=== PATIENT | male | born 1985 | race Caucasian/White ===

== ENCOUNTER 2022-02-25 08:27 | Outpatient (CLI) | payer OTHER, SELFPAY | END 2022-02-25 08:28 | disposition home or self-care (01) | LOC: LKVREF 02-28 13:33 | PROVIDERS: PCP Physician Assistant Medical; Visit Provider Physician Assistant Medical | DX: I10 Essential (primary) hypertension (principal); M10.9 Gout, unspecified; R79.89 Other specified abnormal findings of blood chemistry; R45.89 Other symptoms and signs involving emotional state | CPT/HCPCS: 80053; 80061; 84550 ==

== ENCOUNTER 2022-02-26 10:23 | Outpatient (CLI) | payer OTHER, SELFPAY ==
[2022-02-26 17:16] LABS: HIV 1/2/P24 Combo Screen* Negative (Negative)
[2022-02-27 23:25] LABS: Hepatitis C Virus Antibody* Negative (Negative)
== END 2022-02-26 10:24 | disposition home or self-care (01) ==
LOC: LKVREF 10:24
PROVIDERS: PCP Physician Assistant Medical; Visit Provider Physician Assistant Medical
DX: Z79.899 Other long term (current) drug therapy (principal); R79.89 Other specified abnormal findings of blood chemistry; M10.9 Gout, unspecified; I10 Essential (primary) hypertension; R45.89 Other symptoms and signs involving emotional state
CPT/HCPCS: 86703; 86803

== ENCOUNTER 2022-09-18 08:10 | Outpatient (CLI) | payer OTHER, SELFPAY | END 2022-09-18 08:11 | disposition home or self-care (01) | PROVIDERS: PCP Physician Assistant Medical; Visit Provider Physician Assistant Medical | DX: R63.4 Abnormal weight loss (principal); R79.89 Other specified abnormal findings of blood chemistry; R45.89 Other symptoms and signs involving emotional state; E78.1 Pure hyperglyceridemia; M10.9 Gout, unspecified; I10 Essential (primary) hypertension | CPT/HCPCS: 80053; 80061; 84550 ==

== ENCOUNTER 2022-09-30 07:05 | Outpatient (CLI) | payer OTHER, SELFPAY ==
--- NOTE | 2022-09-30 07:15 | CRLHL7_ITS ---
For Patients: As a result of the Century Cures Act, medical imaging exams and procedure reports are released immediately into your electronic medical record. You may view this report before your referring provider. If you have questions, please contact your health care provider. INDICATION: Elevated liver enzymes COMPARISON: none TECHNIQUE: Real time quezada scale imaging and color Doppler analysis was performed of the right upper quadrant. FINDINGS: The patient`s liver is of normal size and has diffusely increased echogenicity. There is a normal appearance of the hepatic IVC and proximal abdominal aorta. There is no evidence of ascites. The gallbladder is of normal size and there is the suspicion of layering sludge within the gallbladder. The gallbladder wall measures 3 mm in thickness. The common bile duct is of normal size and measures 4 mm in diameter at the level of the yumiko hepatis. The pancreas appears normal. There is no evidence of a stone or hydronephrosis within the right kidney. The right kidney measures 10.0 cm in length. IMPRESSION: Severe diffuse hepatic steatosis. Suspicion of sludge within the gallbladder without biliary obstruction. Dictated by Guanakito Cartwright MD @ 09/30/2022 9:17:13 AM (Electronically Signed)
== END 2022-09-30 07:06 | disposition home or self-care (01) ==
LOC: US 07:07
PROVIDERS: PCP Physician Assistant Medical; Visit Provider Physician Assistant Medical
DX: R79.89 Other specified abnormal findings of blood chemistry (principal); K76.0 Fatty (change of) liver, not elsewhere classified
CPT/HCPCS: 76705

== ENCOUNTER 2023-12-10 08:54 | Outpatient (CLI) | payer OTHER, SELFPAY ==
--- OUTSIDE RECORDS SUMMARY | 2023-12-29 15:30 | XMS_ITS ---
Author Organization [facility] Address [address] [place] [address] Care Team Providers Care Respiratory Scientist Name Role Phone Unavailable Unavailable Unavailable Surgery Details Not on file Complications Check Surgery Details section. Procedure Estimated Blood Loss Check Surgery Details section. Procedure Findings Check Surgery Details section. Procedure Specimens Taken Check Surgery Details section.
--- OUTSIDE RECORDS SUMMARY | 2023-12-29 15:30 | XMS_ITS | Referral Summary ---
Author Organization [facility] Address [address] [place] [address] Care Team Providers Care Network Strategist Name Role Phone Elsewhere, Pcp Primary Care Provider Unavailabl e Source Comments Patient records contain information from all sites at [facility]. For routine questions regarding patient records, call [phone] during business hours, M-F 8:00 AM - 5:00 PM Central Time. Record requests for emergency care only can be directed to [phone] at any time.[facility] Encounters Date Type Department Care Team Description 10/27/2023 1:25 PM CDT - 10/27/2023 3:54 PM CDT Emergency [facility] [address] [place] [phone] Marlon Taylor D.O. Laceration Hand Without Foreign Body Initial Left (Primary Dx) Discharge Disposition: Home or Self Care from Last 3 Months Allergies No known active allergies Medications Medication Sig Dispensed Refills Start Date End Date Status indomethacin (for_INDOCIN) 25 mg capsule Take 1 capsule by mouth 3 (three) times a day as needed. 05/21/2016 Active buPROPion (WELLBUTRIN SR) 150 mg 12 hr tablet TAKE 1 TABLET BY MOUTH IN THE MORNING AND 1 IN THE EVENING NEEDED 04/06/2020 Active allopurinoL (ZYLOPRIM) 100 mg tablet Take 100 mg by mouth daily. 04/13/2020 Active naproxen (NAPROSYN) 500 mg tabletIndications:Pu ncture Wound With Foreign Body Of Left Index Finger Without Damage To Nail Initial Take 1 tablet twice daily 15 min before meal for the next 5 days and then take twice daily as needed for pain. 24 tablet 1 06/08/2020 Active lisinopriL (PRINIVIL,ZESTRIL) 10 mg tablet Take 10 mg by mouth daily. for blood pressure 10/16/2023 Active Active Problems Problem Noted Date Diagnosed Date Gout 05/26/2023 Fatty Liver 05/26/2023 Effusion Knee Right 05/26/2023 Pure Hyperglyceridemia (Hypertriglyceridemia) Other Specified Abnormal Findings Of Blood Chemi stry 05/26/2023 Hypertension 05/21/2016 Overview: Hypertension (HTN) NOS Immunizations Name Administration Dates Next Due HepB, Unspecified 11/20/1998,07/17/1998,05/29/19 98 Tdap 06/08/2020 Social History Tobacco Use Types Packs/Day Years Used Date Smoking Tobacco: Former Smokeless Tobacco: Never Nutrition Answer Date Recorded Nutrition: EVOO Fat Source Unknown 09/10 Nutrition: Servings of Fruits/Vegetables per Day Not on file 09/10/2020 Dental Answer Date Recorded Dental: Regular Dentist Unknown 09/11/19 21 Sex and Gender Information Value Date Recorded Sex Assigned at Not on file Gender Identity Not on file Sexual Orientation Not on file Last Filed Vital Signs Vital Sign Reading Time Taken Comments Blood Pressure 135/88 10/27/2023 3:45 PM CDT Pulse 72 10/27/2023 3:45 PM CDT Temperature 36.7 ??C (98.1 ??F) 10/27/2023 2:22 PM CD T Respiratory Rate 18 10/27/2023 3:45 PM CDT Oxygen Saturation 100% 10/27/2023 3:45 PM CDT Inhaled Oxygen Concentration - - Weight 115 kg (253 lb) 10/27/2023 1:28 PM CDT Height 186 cm (6' 1.23) 08/05/2017 10:08 AM HALF BACKER Body Mass Index 33.17 08/05/2017 10:08 AM HALF BACKER Plan of Treatment Not on file Procedures Procedure Name Priority Date/Time Associated Diagnosis Comments LACERATION REPAIR Routine 10/27/2023 3:5 4 PM CDT BASIC METABOLIC PANEL, S/P Routine 05/21/2016 1:55 PM HALF BACKER from Last 3 Months or Most Recently Relevant to Health Maintenance Results * Laceration Repair (10/27/2023 3:54 PM CDT) Narrative Marlon Taylor D.O. - 10/27/2023 3:54 PM CDT Marlon Taylor D.O. ? 10/27/2023 ??5:16 PM Laceration Repair Performed by: Marlon Taylor D.O. Authorized by: Marlon Taylor D.O. ?? PROCEDURE DETAILS Repair type: ??Simple Hemostasis achieved with: ??Direct pressure Contaminated: no ?? Wound exploration: wound explored through full range of motion and entire depth of wound probed and visualized ?? Wound extent: no foreign body, no nerve damage, no tendon damage and no underlying fracture ?? Repair method: ??Sutures Suture size: ??5-0 Suture material: ??Nylon Suture technique: ??Simple interrupted Number of sutures: ??6 Approximation: ??Close SEDATION / ANESTHESIA Anesthesia method: local infiltration Local infiltrate type: lidocaine, with epinephrine PRE PROCEDURE DETAILS Indication: laceration ?? Location: ??Hand Hand location: ??Left palmar surface Length (cm): ??3.5 Circulation distal to injury: capillary refill < 2 sec ?? Movement distal to injury: normal ?? Sensation distal to injury: normal ?? Area cleansed with: ??Chlorhexidine Amount of cleaning: ??Extensive Irrigation solution: ??Tap water Foreign body imaging: ??None Appropriate hand hygiene, gown, cap, mask, protective eyewear, sterile gloves, skin preparation, sterile drape, and strict aseptic technique were utilized as applicable for the procedure.: Yes ?? POST PROCEDURE DETAILS Procedure completed successfully: yes ?? Tetanus status up to date: ??Up to date Dressing Applied: yes ?? Circulation distal to injury: capillary refill < 2 sec ?? Movement distal to injury: normal ?? Sensation distal to injury: normal ?? Complications: no immediate complications ?? Marlon Taylor D.O. PROCEDURE/MINOR SMITHA GICAL ORDERABLES * (ABNORMAL) BMP (Basic Metabolic Panel) (05/21/2016 1:55 PM HALF BACKER) Sodium, S 141 135 - 145 MMOLL POWERCHART Potassium, S 4.2 3.5 - 5.1 MMOLL POWERCHART Chloride, S 96(L) 98 - 107 MMOLL POWERCHART CO2 Total 29 22 - 29 MMOLL POWERCHART BUN (Blood Urea Nitrogen), S 12 6 - 24 MGDL POWERCHART Creatinine 1.0 0.8 - 1.3 MGDL POWERCHART Calcium, Total, S 10.3 8.6 - 10.3 MGDL POWERCHART Anion Gap 16(H) 7 - 15 MMOLL POWERCHART HXeGFR (MDRD) >60.0 >=60.0 MLMINSA POWERCHART eGFR Black/ >60.0 >=60.0 MLMINSA POWERCHART Glucose 125 70 - 140 MGDL POWERCHART Blood 05/21/2016 1:55 PM HALF BACKER Austin Watson D.O. LAB BLOOD ADD-ON POWERCHART from Last 3 Months or Most Recently Relevant to Health Maintenance Care Teams Network Strategist Relationship Specialty Start Date End Date Elsewhere, Pcp PCP - General Family Medicine 08/24/20
--- OUTSIDE RECORDS SUMMARY | 2023-12-29 15:30 | XMS_ITS | Clinical Summary ---
Author Organization [facility] Address [address] [place] [address] Care Team Providers Care Police Liaison Officer Name Role Phone Elsewhere, Pcp Primary Care Provider Unavailabl e Source Comments Patient records contain information from all sites at [facility]. For routine questions regarding patient records, call [phone] during business hours, M-F 8:00 AM - 5:00 PM Central Time. Record requests for emergency care only can be directed to [phone] at any time.[facility] Allergies No known active allergies Medications Medication [...] 05/26/2023 Hypertension 05/21/2016 Overview: Hypertension (HTN) NOS Encounters Date Type Department Care Team Description 10/27/2023 1:25 PM CDT - 10/27/2023 3:54 PM CDT Emergency [facility] [address] [place] [phone] Marlon Taylor D.O. Laceration Hand Without Foreign Body Initial Left (Primary Dx) Discharge Disposition: Home or Self Care from Last 3 Months Immunizations Name Administration Dates Next Due HepB, [...] 186 cm (6' 1.23) 08/05/2017 10:08 AM MINING ANALYST Body Mass Index 33.17 08/05/2017 10:08 AM MINING ANALYST Plan of Treatment Health Maintenance Due Date Last Done Comments HIV Screening 1986 Hepatitis C Screening 1985 Lipid (Cholesterol) Screening 1986 Creatinine Level (Kidney Function Test) 05/21/2017 05/21/2016 Potassium Level 05/21/2017 05/21/2016 Sodium Level 05/21/2017 05/21/2016 COVID-19 Vaccine (1 - 2022-2 4 season) 2023 Influenza Vaccine (#1) 2023 Depression Screening (Annual PHQ-2) 07/13/2023 Office Visit for Blood Pressure Check / Re-check 05/26/2024 05/26/2023 DTaP,Tdap,and Td Vaccines (2 - Td or Tdap) 06/08/2030 06/08/2020 Hepatitis B Vaccines Completed 11/20/1998, 07/17/1998, 05/29/1998 HPV Vaccines Aged Out No longer eligi ble based on patient's age to complete this topic Pneumococcal vaccine (0-64 years) Aged Out No longer eligible b ased on patient's age to complete this topic Procedures Procedure Name Priority Date/Time Associated Diagnosis Comments LACERATION REPAIR Routine 10/27/2023 3:5 4 PM CDT BASIC METABOLIC PANEL, S/P Routine 05/21/2016 1:55 PM MINING ANALYST from Last 3 Months or Most Recently [...] BMP (Basic Metabolic Panel) (05/21/2016 1:55 PM MINING ANALYST) Sodium, S 141 135 - 145 MMOLL [...] 140 MGDL POWERCHART Blood 05/21/2016 1:55 PM MINING ANALYST Austin Watson D.O. LAB BLOOD ADD-ON POWERCHART from Last 3 Months or Most Recently Relevant to Health Maintenance Care Teams Police Liaison Officer Relationship Specialty Start Date End Date Elsewhere, Pcp PCP - General Family Medicine 08/24/20
--- OUTSIDE RECORDS SUMMARY | 2023-12-29 15:30 | XMS_ITS | Encounter Summary ---
Author Organization [facility] Address [address] [place] [address] Care Team Providers Care Surveillance Camera Technician Name Role Phone Elsewhere, Pcp Primary Care Provider Unavailabl e Reason for Visit * Reason Comments Extremity Laceration Pt presents to ED w ith L anterior hand laceration from a piece of metal strapping. CWMS intact. Wound care completed in triage. Tdap in 2020. Encounter Details Date Type Department Care Team ([facility] st Contact Info) Description 10/27/2023 1:25 PM CDT - 10/27/2023 3:54 PM CDT Emergency [facility] [address] [place] [phone] Marlon Taylor, NgoziO. [address] [place] [address] Laceration Hand Without Foreign Body Initial Left (Primary Dx) Discharge Disposition: Home or Self Care Social History Tobacco Use Types Packs/Day Years [...] on file Sexual Orientation Not on file documented as of this encounter Last Filed Vital Signs Vital Sign Reading Time Taken Comments Blood Pressure 135/88 10/27/2023 3:45 PM CDT Pulse 72 10/27/2023 3:45 PM CDT Temperature 36.7 ??C (98.1 ??F) 10/27/2023 2:22 PM CD T Respiratory Rate 18 10/27/2023 3:45 PM CDT Oxygen Saturation 100% 10/27/2023 3:45 PM CDT Inhaled Oxygen Concentration - - Weight 115 kg (253 lb) 10/27/2023 1:28 PM CDT Height - - Body Mass Index 33.17 08/05/2017 10:08 AM SYRUP MIXER HELPER documented in this encounter Discharge Instructions * Discharge Instructions* Marlon Taylor D.O. - 10/27/2023 3:52 PM CDT You were seen in the emergency department for evaluation of your symptoms. Your sutures and wound should remain clean and dry. Do limit lifting and excessive movement. Lifting should not be over 10 lb as it will likely increase risk for wound dehiscence/sutures pulling out/breaking. Do not submergethis wound but indirect soap and water, such as a shower is appropriate and okay. Please change thedressing daily and this can occur after showering. We do recommend putting a non adherent dressing over the wound so that is easier to remove the following day. Sutures should be considered for removal in 7 to 10 days. * Attachments The following attachments cannot be sent through Care Everywhere. * Laceration Care Adult (Vietnamese) documented in this encounter Medications at Time of Discharge Medication Sig Dispensed Refills Start Date End Date lisinopriL (PRINIVIL,ZESTRIL) 10 mg tablet Take 10 mg by mouth daily. for blood pressure 10/16/2023 allopurinoL (ZYLOPRIM) 100 mg tablet Take 100 mg by mouth daily. 04/13/2020 buPROPion (WELLBUTRIN SR) 150 mg 12 hr tablet TAKE 1 TABLET BY MOUTH IN THE MORNING AND 1 IN THE EVENING NEEDED 04/06/2020 indomethacin (for_INDOCIN) 25 mg capsule Take 1 capsule by mouth 3 (three) times a day as needed. 05/21/2016 naproxen (NAPROSYN) 500 mg tabletIndications:Punctu re Wound With Foreign Body Of Left Index Finger Without Damage To Nail Initial Take 1 tablet twice daily 15 min before meal for the next 5 days and then take twice daily as needed for pain. 24 tablet 1 06/08/2020 documented as of this encounter Procedure Notes * Marlon Taylor D.O. - 10/27/2023 3:54 PM CDTAssociated Order(s): Laceration Repair Procedure Laceration Repair Performed by: Marlon Taylor D.O. Authorized by: Marlon Taylor D.O. PROCEDURE DETAILS Repair type: Simple Hemostasis achieved with: Direct pressure Contaminated: no Wound exploration: wound explored through full range of motion and entire depth of wound probed andvisualized Wound extent: no foreign body, no nerve damage, no tendon damage and no underlying fracture Repair method: Sutures Suture size: 5-0 Suture material: Nylon Suture technique: Simple interrupted Number of sutures: 6 Approximation: Close SEDATION / ANESTHESIA Anesthesia method: local infiltration Local infiltrate type: lidocaine, with epinephrine PRE PROCEDURE DETAILS Indication: laceration Location: Hand Hand location: Left palmar surface Length (cm): 3.5 Circulation distal to injury: capillary refill < 2 sec Movement distal to injury: normal Sensation distal to injury: normal Area cleansed with: Chlorhexidine Amount of cleaning: Extensive Irrigation solution: Tap water Foreign body imaging: None Appropriate hand hygiene, gown, cap, mask, protective eyewear, sterile gloves, skin preparation, sterile drape, and strict aseptic technique were utilized as applicable for the procedure.: Yes POST PROCEDURE DETAILS Procedure completed successfully: yes Tetanus status up to date: Up to date Dressing Applied: yes Circulation distal to injury: capillary refill < 2 sec Movement distal to injury: normal Sensation distal to injury: normal Complications: no immediate complications Marlon Taylor D.O. 10/27/23 1716 documented in this encounter ED Notes * Marlon Taylor D.O. - 10/27/2023 3:54 PM CDT SUBJECTIVE CHIEF COMPLAINT / REASON FOR VISIT: Extremity Laceration (Pt presents to ED with L anterior hand laceration from a piece of metal strapping. CWMS intact. Wound care completed in triage. Tdap in 2019. ) HISTORY OF PRESENT ILLNESS Wes Wooten is a 38 y.o. male who presents to the Emergency Department with a chief complaint of laceration to left hand prior to arrival. No preceding symptoms. Patient notes he cut it on a piece of metal banding while at home. Patient noting tetanus up-to-date. Patient notes no significantpast medical history minus hypertension. No history of diabetes or chronic steroid use. History provided by: Patient REVIEW OF SYSTEMS Constitutional: Negative for fever. Skin: Positive for wound. Allergic/Immunologic: Negative for immunocompromised state. ALLERGIES / CONTRAINDICATIONS Reviewed in medical record. CURRENT MEDICATIONS Reviewed in medical record. MEDICAL HISTORY History reviewed. No pertinent past medical history. Patient Active Problem List Diagnosis Date Noted Gout 05/26/2023 Fatty Liver 05/26/2023 Effusion Knee Right 05/26/2023 Pure Hyperglyceridemia (Hypertriglyceridemia) 05/26/2023 Other Specified Abnormal Findings Of Blood Chemistry 05/26/2023 Hypertension 05/21/2016 SURGICAL HISTORY History reviewed. No pertinent surgical history. FAMILY HISTORY Reviewed in chart. SOCIAL HISTORY Social History Tobacco Use Smoking status: Former Smokeless tobacco: Never Substance Use Topics Alcohol use: Not on file Social History Substance and Sexual Activity Drug Use Not on file OBJECTIVE INITIAL VITAL SIGNS: Initial Vitals [10/27/23 1328] Temperature 36.6 ??C Pulse Rate 80 Heart Rate Resp Rate 20 Blood Pressure 130/87 SpO2 100 % Pain Score 2 PHYSICAL EXAMINATION Constitutional: Nursing note and vitals reviewed. No distress. HENT: Head: Normocephalic and atraumatic. Mouth/Throat: Mucous membranes are moist. Cardiovascular: Capillary refill: takes less than 3 seconds Pulmonary/Chest: Effort normal. No respiratory distress. Musculoskeletal: Comments: 3-1/2 linear laceration involving subcutaneous fat. No tendon structures or foreign body appreciated. Flexor digitorum profundus, flexor digitorum superficialis, and extensor mechanism intact. Neurological: Alert and oriented to person, place, and time. Sensation intact to light touch Skin: Skin is intact and normal color. He is not diaphoretic. Psychiatric: He has a normal mood and affect. Behavior is normal. ED COURSE: Final Diagnoses: as of 10/27/23 1715 Laceration Hand Without Foreign Body Initial Left INTERVENTIONS: Medications lidocaine-EPINEPHrine 1 %-1:100,000 injection 10 mL (XYLOCAINE W/EPI) (10 mL infiltration Given 10/27/23 1430) DIAGNOSTICS LABS: Labs Reviewed - No data to display ECG: RADIOLOGY: No orders to display PROCEDURES: Laceration repair ASSESSMENT / PLAN IMPRESSION AND PLAN The patient is a pleasant 38-year-old male who is right-hand dominant without history of diabetes or smoking who presents emergency department with a chief complaint of laceration to his hand. Cut bysheet metal. Sheet metal/banding material intact and no concerns for foreign body. CMS intact distally. Tetanus up-to-date. Did discuss management with patient. Given subcutaneous fat, while approximated without tension, given over palmar aspect of hand, would elect to close. Wound management discussed. No indication for antibiotics. Copious irrigation here. Please see procedure note. I reviewed previous medical records including documentation from previous visits. DIAGNOSIS: Final diagnoses: [S61.412A] Laceration Hand Without Foreign Body Initial Left ED DISCHARGE MEDS: ED Prescriptions None DISPOSITION: Home or Self Care FOLLOW UP: Primary care Marlon Taylor D.O. Emergency Medicine Marlon Taylor D.O. 10/27/23 8262 documented in this encounter Plan of Treatment Not on file documented as of this encounter Procedures Procedure Name Priority Date/Time Associated Diagnosis Comments LACERATION REPAIR Routine 10/27/2023 3:5 4 PM CDT documented in this encounter Results * Laceration Repair (10/27/2023 3:54 PM [...] Marlon Taylor D.O. PROCEDURE/MINOR SMITHA GICAL ORDERABLES documented in this encounter Visit Diagnoses Diagnosis Laceration Hand Without Foreign Body Initial Left- Primary documented in this encounter Administered Medications Inactive Administered Medications - up to 3 most recent administrations Medication Order MAR Action Action Date Dose Rate Site lidocaine-EPINEPHrine 1 %-1:100,000 injection 10 mL (XYLOCAINE W/EPI) 10 mL, infiltration, Once, On Thu10/27/23 at 1426, For 1 dose Given 10/27/2023 2:30 PM CDT 10 mL documented in this encounter Active and Recently Administered Medications Times are shown in CDT. Scheduled Medication Order 10/25/2023 10/26/2023 10/27/2023 lidocaine-EPINEPHrine 1 %-1:100,000 injection 10 mL (XYLOCAINE W/EPI) (COMPLETED) 10 mL, infiltration, Once, On e 10/27/23 at 1426, For 1 dose 1430 (Given - Provid er: Andree Stokes R.N.) documented in this encounter Care Teams Surveillance Camera Technician Relationship Specialty Start Date End Date Elsewhere, Pcp PCP - General Family Medicine 08/24/20 documented as of this encounter
== END 2023-12-10 08:55 | disposition home or self-care (01) ==
LOC: NFLDREF 12-29 15:28
PROVIDERS: PCP Physician Assistant Medical; Referring Provider Physician Assistant Medical; Visit Provider Physician Assistant Medical
DX: Z00.00 Encounter for general adult medical examination without abnormal findings (principal); R45.89 Other symptoms and signs involving emotional state; I10 Essential (primary) hypertension; M10.9 Gout, unspecified; K76.0 Fatty (change of) liver, not elsewhere classified; R63.4 Abnormal weight loss; R79.89 Other specified abnormal findings of blood chemistry; E78.1 Pure hyperglyceridemia
CPT/HCPCS: 80053; 80061; 84550; 86703; 86803

== ENCOUNTER 2025-02-22 08:12 | Outpatient (CLI) | payer BC, SELFPAY | END 2025-02-22 08:13 | disposition home or self-care (01) | PROVIDERS: PCP Physician Assistant Medical; Visit Provider Physician Assistant Medical | DX: K76.0 Fatty (change of) liver, not elsewhere classified (principal); I10 Essential (primary) hypertension; M10.9 Gout, unspecified; R79.89 Other specified abnormal findings of blood chemistry; E78.1 Pure hyperglyceridemia | CPT/HCPCS: 80053; 80061; 82306; 84443; 84550; 86038; 86140; 86200; 86431; 86812 ==